=== PATIENT | female | born 1980 | race Two or more races ===

== ENCOUNTER → 2018-03-31 | Outpatient (CLI) | payer OTHER | END | disposition home or self-care (01) | LOC: SONOGRAMA 09:47 | DX: E04.1 Nontoxic single thyroid nodule (principal) ==

== ENCOUNTER 2021-08-16 08:45 | Inpatient (IN) | payer OTHER ==
[~2021-08-16] VITALS: Ht 154.9 cm; Wt 49.4 kg
[2021-08-16] MEDS ORDERED: FAMOTIDINE (11:37)
[2021-08-16] MEDS ORDERED: PRILOSEC OTC20 MG (11:37)
[2021-08-16] MEDS ORDERED: PAXIL (11:37)
[2021-08-29] MEDS ORDERED: FAMOTIDINE40 MG PO (08:39)
[2021-08-29] MEDS ORDERED: PAXIL20 MG (08:39)
[2021-08-30] MEDS ORDERED: PERCOCET 5-3251 EACH PO (07:58)
[2021-08-30] MEDS ORDERED: IBUPROFEN800 MG PO (07:58)
== END 2021-08-30 08:52 | disposition home or self-care (01) | DRG 743 ==
LOC: SURH 08-21 08:45 → O/R 08-28 07:52 → OB/GYN 08-28 07:52 → SURH 08-28 08:45 → OB/GYN 08-28 13:36
PROVIDERS: ADMIT Obstetrics & Gynecology Gynecology; ATTEND Obstetrics & Gynecology Gynecology
PROC: 0UT70ZZ Resection of Bilateral Fallopian Tubes, Open Approach (ICD-10-PCS; 2021-08-28)
PROC: 0UT90ZZ Resection of Uterus, Open Approach (ICD-10-PCS; principal; 2021-08-28 11:30)
DX: D25.1 Intramural leiomyoma of uterus (principal); D25.0 Submucous leiomyoma of uterus; D25.2 Subserosal leiomyoma of uterus; J45.20 Mild intermittent asthma, uncomplicated; K21.9 Gastro-esophageal reflux disease without esophagitis

== ENCOUNTER 2021-08-25 09:58 | Outpatient (CLI) | payer OTHER ==
[~2021-08-25 09:58] MED LIST: FAMOTIDINE; PAXIL; PRILOSEC OTC20 MG
== END 2021-08-25 09:59 | disposition home or self-care (01) ==
LOC: LAB 09:58
PROVIDERS: ATTEND Obstetrics & Gynecology Gynecology
DX: Z03.818 Encounter for observation for suspected exposure to other biological agents ruled out (principal)

== ENCOUNTER 2024-04-09 11:11 | Outpatient (CLI) | payer OTHER ==
[~2024-04-09 11:11] MED LIST changes: +FAMOTIDINE40 MG PO; +IBUPROFEN800 MG PO; +PAXIL20 MG; +PERCOCET 5-3251 EACH PO
== END 2024-04-09 11:19 | disposition home or self-care (01) ==
LOC: SONOGRAMA 11:11
PROVIDERS: ATTEND Pathology Anatomic Pathology & Clinical Pathology
DX: D34 Benign neoplasm of thyroid gland (principal); E07.89 Other specified disorders of thyroid; E04.2 Nontoxic multinodular goiter